=== PATIENT | male | born 1965 | race Caucasian/White ===

== ENCOUNTER 2016-10-29 19:00 | Emergency (ER) | payer BC ==
[2016-10-29 19:19] VITALS: BP 156/101; PULSE 73; TEMP 98.6; BMI 36.2
--- NOTE | 2016-10-29 19:30 | PDOC ---
History of Present Illness - General History Source: Patient Exam Limitations: No Limitations - History of Present Illness Initial Comments: 10/29/16 20:02 The patient is a 51 year old male with a significant past medical history of Gout, and Tibia/fibula fracture requiring ORIF, who presents to the ED with neck pain that began yesterday afternoon. Patient states he was doing some heaving lifting at work throughout the week. He had tylenol and Day Pro this morning with no alleviation. He denies any tingling/numbness. He denies fever, chills, nausea, vomiting, diarrhea. PAST MEDICAL HISTORY: Gout PAST SURGICAL HISTORY: Tibia/fibula fracture requiring ORIF FAMILY HISTORY: no pertinent history SOCIAL HISTORY: Pt lives with family and is employed. MEDICATIONS: reviewed ALLERGIES: As per nursing notes ROS General: No fevers or chills, no weakness, no weight loss HEENT: No change in vision. No sore throat,. No ear pain CardioVascular: No chest pain or shortness of breath Respiratory:No cough, or wheezing. Gastrointestinal: no nausea, vomiting, diarrhea or constipation, No rectal bleeding Genitourinary: No dysuria, hematuria, or frequency Musculoskeletal: + neck pain Neurologic: No headache, vertigo, dizziness or loss of consciousness Psychiatric: nor depression Skin: No rashes or easy bruising Endocrine: no increased thirst or abnormal weight change Allergic: no skin or latex allergy All other systems reviewed and normal PE GENERAL: The patient is awake, alert, and fully oriented, in no acute distress. HEAD: Normal with no signs of trauma. EYES: Pupils equal, round and reactive to light, extraocular movements intact, sclera anicteric, conjunctiva clear. EXTREMITIES: Normal range of motion, no edema. NECK/BACK: Neck tenderness on palpation. Upper cervical spine tenderness with bilateral upper cervical spine spasm. No tenderness or spasm on palp of the lower cervical spine, lower neck, or shoulder muscles. NEUROLOGICAL: Normal speech, normal gait. PSYCH: Normal mood, normal affect. SKIN: Warm, Dry, normal turgor, no rashes or lesions noted. <Qamar Neville - Last Filed: 10/29/16 20:01> - General History Source: Patient Exam Limitations: No Limitations - History of Present Illness Initial Comments: 10/29/16 20:26 A portion of this note was documented by scribe services under my direction. I have reviewed the details of the note, within reason, and agree with the documentation. The case summary and management plan written by me. Cervical spine x-ray read by me no acute pathology loss of lordosis secondary to spasm Assessment and plan: This is a 51-year-old male who injured his neck well lifting some heavy objects at work. Patient said that he lifts heavy objects on a regular basis but on Monday and he lifted more heavy objects than usual and then again on Monday and had started developing neck pain on Monday and it was markedly exacerbated today. Patient had not taken anything other than some [id number] anti-inflammatories and came in for evaluation. Patient had an cervical spine x-ray that was negative for any acute pathology. On exam patient was having tenderness and spasm of his upper cervical spine. Patient given a muscle relaxant Valium as well as an anti-inflammatory and a shot of Decadron.. Patient given prescription for Naprosyn and Valium and discharged home. Patient given a note to not return to work in tell Monday of next week. <Eve Garcia I - Last Filed: 10/29/16 20:30> - General Chief Complaint: Pain Stated Complaint: NECK PAIN Time Seen by Provider: 10/29/16 19:24 Past History <Qamar Neville - Last Filed: 10/29/16 20:01> - Past Medical History HTN: Yes Other medical history: GOUT - Immunization History Td Vaccination: Yes Immunization Up to Date: Yes - Psycho/Social/Smoking Cessation Hx Anxiety: No Suicidal Ideation: No Smoking Status: No Smoking History: Never smoked Number of Cigarettes Smoked Daily: 0 Information on smoking cessation initiated: No Hx Alcohol Use: (occasional) Drug/Substance Use Hx: No Substance Use Type: None Hx Substance Use Treatment: No <Eve Garcia I - Last Filed: 10/29/16 20:30> - Past Medical History Allergies/Adverse Reactions: Allergies Allergy/AdvReac Type Severity Reaction Status Date / Time No Known Allergies Allergy Verified 02/04/12 22:03 Home Medications: Ambulatory Orders Allopurinol [Zyloprim -] 100 mg PO DAILY 10/29/16 Diazepam [Valium] 5 mg PO Q8H #21 tablet MDD 3 10/29/16 Lisinopril [Prinivil] 20 mg PO DAILY 10/29/16 Naproxen [Naprosyn -] 500 mg PO BID #14 tablet 10/29/16 *Physical Exam - Vital Signs Last Vital Signs Temp Pulse Resp BP Pulse Ox 98.6 F 73 18 156/101 96 10/29/16 19:00 10/29/16 19:00 10/29/16 19:00 10/29/16 19:00 10/29/16 19:00 <Qamar Neville - Last Filed: 10/29/16 20:01> - Vital Signs Last Vital Signs Temp Pulse Resp BP Pulse Ox 98.6 F 73 18 156/101 96 10/29/16 19:00 10/29/16 19:00 10/29/16 19:00 10/29/16 19:00 10/29/16 19:00 <Eve Garcia I - Last Filed: 10/29/16 20:30> *DC/Admit/Observation/Transfer - Attestations Scribe Attestion: 10/29/16 20:05 Documentation prepared by Qamar Neville, acting as biomedical repair technician for Eve Garcia MD. <Qamar Neville - Last Filed: 10/29/16 20:01> - Discharge Dispostion Admit: No <Eve Garcia I - Last Filed: 10/29/16 20:30> Diagnosis at time of Disposition: Strain of neck muscle Qualifiers: Encounter type: initial encounter Qualified Code(s): S16.1XXA - Strain of muscle, fascia and tendon at neck level, initial encounter - Discharge Dispostion Disposition: HOME Condition at time of disposition: Stable - Prescriptions Prescriptions: Naproxen [Naprosyn -] 500 mg PO BID #14 tablet Diazepam [Valium] 5 mg PO Q8H #21 tablet MDD 3 - Patient Instructions Additional Instructions: Take an anti-inflammatory Naprosyn 1 tablet twice a day for the next 7 days in addition to that take a muscle relaxant diazepam 1 tablet as often as 3 times a day. The diazepam will make you drowsy so do not take it if you have to go to work or drive or do anything that requires your concentration. No work until Monday of next week November 02. Follow-up with an orthopedist if not improved by Monday. If you need an orthopedist call Dr. Lowery at [phone] call on Monday to make an appointment for Monday or Monday that way if you're not better you have an appointment. Return to the emergency department immediately with ANY new, persistent or worsening symptoms. Continue any medications as previously prescribed by your physician. You should follow up with your primary doctor as soon as possible regarding today's emergency department visit. . Please make sure your doctor reviews the results of your emergency evaluation. Thank you for coming to the Emergency Department today for your care. It was a pleasure to see you today. Please note that your evaluation is INCOMPLETE until you follow-up with your doctor.
[2016-10-29] MEDS ORDERED: KETOROLAC TROMETHAMINE 60 MG/2 ML VIAL IM ONE (19:49)
[2016-10-29] MEDS ORDERED: DEXAMETHASONE SOD PHOSPHATE 10 MG/1 ML VIAL IM ONE (19:49)
[2016-10-29] MEDS ORDERED: KETOROLAC TROMETHAMINE 60 MG/2 ML VIAL ONE (19:50)
[2016-10-29] MEDS ORDERED: DEXAMETHASONE SOD PHOSPHATE 10 MG/1 ML VIAL ONE (19:53)
[2016-10-29] MEDS ORDERED: diazePAM 5 MG TABLET PO ONE (20:21)
[2016-10-29] MEDS ORDERED: diazePAM 5 MG TABLET ONE (20:28)
== END 2016-10-29 20:46 | disposition home or self-care (01) ==
LOC: FER 19:00
PROC: 3E0233Z Introduction of Anti-inflammatory into Muscle, Percutaneous Approach (ICD-10-PCS; principal; 2016-10-29)
PROC: 3E023GC Introduction of Other Therapeutic Substance into Muscle, Percutaneous Approach (ICD-10-PCS; 2016-10-29)
DX: S16.1XXA Strain of muscle, fascia and tendon at neck level, initial encounter (principal); X58.XXXA Exposure to other specified factors, initial encounter; Y93.89 Activity, other specified; Y92.9 Unspecified place or not applicable; M10.9 Gout, unspecified; I10 Essential (primary) hypertension
CPT/HCPCS: 72050-TC; 99283-25

== ENCOUNTER 2018-02-26 11:42 | Emergency (ER) | payer BC ==
[2018-02-26 11:58] VITALS: BP 123/68; PULSE 68; TEMP 98.2; BMI 39.6
[2018-02-26] MEDS ORDERED: predniSONE 20 MG TABLET (UD) PO ONE (12:01)
[2018-02-26] MEDS ORDERED: diphenhydrAMINE HCL 25 MG CAPSULE (FP) PO ONE (12:01)
[2018-02-26] MEDS ORDERED: RANITIDINE HCL 150 MG TABLET (FP) PO ONE (12:01)
[2018-02-26] MEDS ORDERED: diphenhydrAMINE HCL 50 MG CAPSULE ONE (12:07)
[2018-02-26] MEDS ORDERED: RANITIDINE HCL 150 MG TABLET (FP) ONE (12:07)
[2018-02-26] MEDS ORDERED: predniSONE 20 MG TABLET (UD) ONE (12:07)
--- NOTE | 2018-02-26 12:56 | PDOC ---
History of Present Illness - General Chief Complaint: Redness To Affected Area Stated Complaint: LEFT HAND SWELLING Time Seen by Provider: 02/26/18 11:50 History Source: Patient Exam Limitations: No Limitations - History of Present Illness Initial Comments: 02/26/18 12:48 52 year old male c/ hx obesity, HTN, gout presents with left hand swelling and itchiness since this morning. Pt reports that he may have gotten his left hand stuck by a thorn. Pulled out thorn, but otherwise had no other symptoms. This morning, woke up with left hand swelling and itchiness that progressively worsened. No fevers, chills. No pain in the hand. No new lotions, clothes, exposures. Past History - Past Medical History Allergies/Adverse Reactions: Allergies Allergy/AdvReac Type Severity Reaction Status Date / Time No Known Allergies Allergy Verified 02/04/12 22:03 Home Medications: Ambulatory Orders Allopurinol [Zyloprim -] 100 mg PO HS 10/29/16 Lisinopril [Prinivil] 20 mg PO HS 10/29/16 Diphenhydramine HCl [Benadryl -] 25 mg PO Q6H PRN #28 capsule 02/26/18 Naproxen 500 mg PO BID PRN #20 tablet 02/26/18 Prednisone [Deltasone] 60 mg PO DAILY #12 tablet 02/26/18 COPD: No HTN: Yes Other medical history: GOUT - Immunization History Td Vaccination: Yes Immunization Up to Date: Yes - Suicide/Smoking/Psychosocial Hx Smoking Status: No Smoking History: Never smoked Number of Cigarettes Smoked Daily: 0 Hx Alcohol Use: Yes (RARE) Drug/Substance Use Hx: No Substance Use Type: None Hx Substance Use Treatment: No Review of Systems - Review of Systems Able to Perform ROS?: Yes Comments:: 02/26/18 12:49 GENERAL/CONSTITUTIONAL: [No fever or chills. No weakness. No weight change.] HEAD, EYES, EARS, NOSE AND THROAT: [No change in vision. No ear pain or discharge. No sore throat.] CARDIOVASCULAR: [No chest pain or shortness of breath.] RESPIRATORY: [No cough, wheezing, or hemoptysis.] GASTROINTESTINAL: [No nausea, vomiting, diarrhea or constipation. No rectal bleeding.] GENITOURINARY: [No dysuria, frequency, or change in urination.] MUSCULOSKELETAL: [No joint or muscle swelling or pain. No neck or back pain.] SKIN AND BREASTS: + Left hand redness, swelling, and itchiness. NEUROLOGIC: [No headache, vertigo, loss of consciousness, or loss of sensation.] PSYCHIATRIC: [No depression or anxiety.] ENDOCRINE: [No increased thirst. No abnormal weight change.] HEMATOLOGIC/LYMPHATIC: [No anemia, easy bleeding, or history of blood clots.] ALLERGIC/IMMUNOLOGIC: [No hives or skin allergy. No latex allergy.] *Physical Exam - Vital Signs Last Vital Signs Temp Pulse Resp BP Pulse Ox 98.2 F 68 16 123/68 98 02/26/18 11:49 02/26/18 11:49 02/26/18 11:49 02/26/18 11:49 02/26/18 11:49 - Physical Exam Comments: 02/26/18 12:49 GENERAL: Awake, alert, and fully oriented, in no acute distress HEAD: No signs of trauma EYES: EOMI, sclera anicteric, conjunctiva clear ENT: Auricles normal inspection, hearing grossly normal, nares patent, Moist mucosa NECK: Normal ROM, supple, EXTREMITIES: Normal range of motion,. No clubbing or cyanosis. No cords, erythema, or tenderness NEUROLOGICAL: Cranial nerves II through XII grossly intact. Normal speech, normal gait SKIN: Warm, Dry, normal turgor. Urticaria and edema of left hand proximally to wrist. Sensation intact throughout. 2+ radial pulse. < 2 sec cap refill. ED Treatment Course - Medications Given in the ED: ED Medications Discontinued Medications Generic Name Dose Route Start Last Admin Trade Name Meche PRN Reason Stop Dose Admin Diphenhydramine HCl 50 mg 02/26/18 12:01 02/26/18 12:10 Benadryl - PO 02/26/18 12:02 50 mg ONCE ONE Administration Prednisone 60 mg 02/26/18 12:01 02/26/18 12:10 Deltasone - PO 02/26/18 12:02 60 mg ONCE ONE Administration Ranitidine HCl 150 mg 02/26/18 12:01 02/26/18 12:10 Zantac - PO 02/26/18 12:02 150 mg ONCE ONE Administration Medical Decision Making - Medical Decision Making 02/26/18 12:56 Vital Signs Temp Pulse Resp BP Pulse Ox 98.2 F 68 16 123/68 98 02/26/18 11:49 02/26/18 11:49 02/26/18 11:49 02/26/18 11:49 02/26/18 11:49 I suspect that this is a reaction to the thorn (likely allergic). Will treat with prednisone, benadryl, and zantac and reassess. 02/26/18 13:37 The hand has been observed and the physical exam findings are unchanged. It is unclear if this is truly an allergic reaction. Could this be gout? However, pt has no pain. Yet, does have all the other symptoms of potential gout. Will treat with naproxen in addition to steroids. I advised the patient to watch and observe his left hand. If he starts to feel severe pain or worsening symptoms, he should return to the ER. Pt is agreeable to plan and would like to go home. I discussed the physical exam findings, ancillary test results and final diagnoses with the patient. I answered all of the patient's questions. The patient was satisfied with the care received and felt comfortable with the discharge plan and treatment plan. The patient will call their primary care physician within 24 hours to arrange follow-up and will return to the Emergency Department with any new, persistant or worsening symptoms. *DC/Admit/Observation/Transfer Diagnosis at time of Disposition: Hand swelling Qualifiers: Laterality: left Qualified Code(s): M79.89 - Other specified soft tissue disorders - Discharge Dispostion Disposition: HOME Condition at time of disposition: Good Decision to Admit order: No - Prescriptions Prescriptions: Diphenhydramine HCl [Benadryl -] 25 mg PO Q6H PRN #28 capsule PRN Reason: Itching Naproxen 500 mg PO BID PRN #20 tablet PRN Reason: Pain Prednisone [Deltasone] 60 mg PO DAILY #12 tablet - Referrals Referrals: Jean iGlliam [Primary Care Provider] - - Patient Instructions Additional Instructions: Your hand swelling may be due to an allergic reaction or possibly gout. At this time, it is unclear at the moment. However, either treatment will require steroids. Please take 60 mg prednisone daily until completion. You may take 25 mg benadry levery 6 hours as needed for itching. If you notice that your hand is getting worse or have severe pain, please return to the ER. - Post Discharge Activity
[2018-02-26] MEDS ORDERED: NAPROXEN 500 MG TABLET (FP) PO ONE (13:28)
[2018-02-26] MEDS ORDERED: NAPROXEN 500 MG TABLET (FP) ONE (13:34)
== END 2018-02-26 13:54 | disposition home or self-care (01) ==
LOC: FER 11:42
DX: M79.89 Other specified soft tissue disorders (principal); I10 Essential (primary) hypertension; E66.9 Obesity, unspecified; Z68.39 Body mass index [BMI] 39.0-39.9, adult
CPT/HCPCS: 99282-25